=== PATIENT | male | born 1960 | race Caucasian/White ===

== ENCOUNTER 2018-09-14 14:06 | Inpatient (IN) | payer OTHER, SELFPAY ==
[2018-09-14 14:39] LABS: #Basophils 0.1 thou/uL (0.0-0.2); #Eosinphils 0.9 thou/uL (0.0-0.7); #Monocytes 0.8 thou/uL (0.11-0.59); #Neutrophils 5.6 thou/uL (1.40-6.50); %Basophils 0.7 % (0.0-1.0); %Eosinophils 10.5 % (0.0-10.0); %Lymphocytes 11.8 % (21.0-51.0); %Monocytes 9.3 % (0.0-10.0); %Neutrophils 67.7 % (42.0-75.0); Hemoglobin 16.5 g/dL (14.0-18.0); Mean Corpuscular HGB CONC 32.3 g/dL (32.0-36.0); Mean Corpuscular Hemoglobin 29.9 pg (27.0-31.0); Mean Corpuscular Volume 92.6 fL (78.0-98.0); Mean Platelet Volume 7.4 fL (7.4-10.4); Platelet Count 204 thou/uL (130-400); RBC Distribution Width 12.1 % (11.5-14.5); Red Blood Cell (RBC) Count 5.52 mill/uL (4.70-6.10); White Blood Cell (WBC) Count 8.3 thou/uL (4.8-10.8)
[2018-09-14 14:57] LABS: ALT (SGPT) 24 U/L (8-55); AST (SGOT) 19 U/L (5-34); Albumin 4.5 g/dL (3.5-5.0); Alkaline Phosphatase 67 U/L (40-150); Anion Gap 17 mmol/L (10-20); BUN (Urea Nitrogen) 9 mg/dL (8.4-25.7); Bilirubin, Total 0.5 mg/dL (0.2-1.2); Calc. Creatinine Clearance 0 mL/min (70-130); Calcium 9.7 mg/dL (7.8-10.44); Carbon Dioxide 21 mmol/L (22-29); Chloride 103 mmol/L (98-107); Estimated GFR-MDRD 83; Globulin 3.1 g/dL (2.4-3.5); Glucose 127 mg/dL (70-105); Potassium 3.9 mmol/L (3.5-5.1); Protein, Total 7.6 g/dL (6.0-8.3); Sodium 137 mmol/L (136-145)
[2018-09-14] MEDS ORDERED: methylPREDNISolone Sod Succ/PF 125 MG/2 ML VIAL ONE (15:28)
[2018-09-14] MEDS ORDERED: Magnesium 2 GM/50 ML BAG (IN WATER) ONE (17:32)
[2018-09-14] MEDS ORDERED: Azithromycin 500 MG VIAL ONE (17:48)
[2018-09-14] MEDS ORDERED: Ondansetron ODT 4 MG TAB SL PRN (19:23)
[2018-09-14] MEDS ORDERED: Ondansetron PF 4 MG/2 ML Vial IVP PRN ×2 (19:23→20:06)
[2018-09-14] MEDS ORDERED: Acetaminophen 325 MG TAB PO PRN ×2 (19:23→20:06)
[2018-09-14 19:49] VITALS: BMI 35.9
[2018-09-14] MEDS ORDERED: Senokot S 8.6-50 MG TAB PO PRN (20:06)
[2018-09-14] MEDS ORDERED: Ondansetron ODT 4 MG TAB PO PRN (20:06)
[2018-09-14] MEDS ORDERED: Acetaminophen 650 MG Suppository PR PRN (20:06)
--- NOTE | 2018-09-15 01:29 | HP ---
PRIMARY CARE PHYSICIAN: [facility]. CHIEF COMPLAINT: Wheezing and chest tightness. HISTORY OF PRESENT ILLNESS: This is a 57-year-old white male with no past medical history, who comes in with a 2-3 day history of worsening shortness of breath. He reports that about a month and half ago he was in [place] visiting relatives in [place] and felt a little short of breath there, thought maybe it was the elevation and improved when he got back to [place]. Then about 3 days prior to presentation, the patient developed a runny nose, congestion, sore throat and some wheezing and cough. He tried some NyQuil which helped with all the symptoms except for the wheezing and cough. He also tried some Primatene Mist, which does not help any. The sore throat went away the next day, but he developed increasing severe shortness of breath for the last two days, coughing, wheezing, unable to catch his breath. He went into the urgent care clinic today. There, he had a chest x-ray which was read as possible COPD versus normal, but no evidence of pneumonia. He was found to be hypoxic on room air. He was given nebulizers which helped a little bit, but when he got up to go and get his x-ray and walked down the [place], he got severely short of breath again and eventually had to be transported to the ER by ambulance. In the emergency room, the patient has had another DuoNeb. He also had Solu-Medrol 125. He had magnesium sulfate with again some improvement in his shortness of breath, but still very tight and very wheezy. His oxygen level came up now on 3 L of oxygen, he has 100%. However, when they tried taking him off the oxygen, his oxygen level dropped to the high 80s and he would be try potting again having a hard time catching his breath, so he is being admitted to the hospital. PAST MEDICAL HISTORY: The patient reports some allergies as a kid that he would always go away with Benadryl. He never had any asthma. PAST SURGICAL HISTORY: Left knee surgery and a hernia repair as a child. SOCIAL HISTORY: The patient smoked two packs per day from the time he was a teenager until he was in his mid 30s. He quit since then and has not had any more smoking exposure. He does tend to use an outdoor smoker a lot, however, most of the smoke stays in the machine or goes up the chimney and says he does not end up breathing a lot of it. No drug use. He drinks about 6 beers over the weekend socially. FAMILY HISTORY: Mother with diabetes and maternal grandfather with diabetes as well. No family history of COPD or asthma. ALLERGIES: NO KNOWN DRUG ALLERGIES. MEDICATIONS: 1. Flonase [id number]. 2. Attempted Primatene Mist earlier in the week without improvement. He is not using it now. REVIEW OF SYSTEMS: CONSTITUTIONAL: No fevers, no chills. EYES: No double vision or blurred vision. ENT: See HPI. CARDIOVASCULAR: No chest pain. No palpitations or racing heart. PULMONARY: See HPI. GASTROINTESTINAL: No abdominal pain. No nausea or vomiting. No diarrhea or constipation. GENITOURINARY: No dysuria or hematuria. MUSCULOSKELETAL: He has some chronic muscle aches and joint pains, but nothing unusual for him and nothing recent. SKIN: No rashes or other lesions noted. NEUROLOGIC: No numbness, tingling, or focal weakness. PHYSICAL EXAMINATION: VITAL SIGNS: Blood pressure 139/86, pulse 98, respirations have improved to 16 if he stays completely rest, while he was talking with me, it jumped up into the low to mid 20s, temperature 98, O2 saturation 100% on 3 L of oxygen. GENERAL: This is a well-developed obese white male, in mild respiratory distress. HEENT: Pupils equal, round, and reactive to light. Oropharynx clear without lesions, erythema, or exudate. NECK: Supple. No lymphadenopathy. No thyroid nodules or enlargement. No JVD. HEART: Regular rate and rhythm. No murmurs, rubs, or gallops. LUNGS: The patient has very tight breath sounds bilaterally. He has increased work of breathing. He has tachypnea if he tries to talk or move around, though not at rest and he has diffuse very loud wheezing throughout both lung hirsch. ABDOMEN: Soft, nontender to palpation. Normoactive bowel sounds. No hepatosplenomegaly or other masses. EXTREMITIES: No clubbing, cyanosis, or edema. SKIN: No rashes or other lesions noted. NEUROLOGIC: He has intact strength and sensation in all extremities and no facial droop. PSYCHIATRIC: Alert and oriented x3. Normal mood and affect. LABORATORY DATA: CBC within normal limits. Complete metabolic panel notable for carbon dioxide of 21 and a glucose of 127. His troponin is negative. His brain natriuretic peptide was negative. CHEST X-RAY: I did review the chest x-ray done at Urgent Care along with the radiologist's report. The lung hirsch are clear. There is some question of flattening of the diaphragms and was called to possible COPD by the radiologist. I did discuss this with one of the other radiologists and he was less convinced. No infiltrates. Normal heart size. No increased pulmonary vascular markings. No effusions or pulmonary edema. ASSESSMENT: 1. Acute asthma attack with hypoxia. We will continue DuoNeb as scheduled q.6 along with a p.r.n. q.4 nebs as well. We will continue Solu-Medrol 40 mg q.6 hours IV and we will give the patient azithromycin for 5 days, first dose has been given in the emergency room. We will consult Dr. Osborne, pulmonology, to assist with this case. 2. Gastrointestinal prophylaxis. We will put the patient on Protonix while he is on the steroids. 3. Deep venous thrombosis prophylaxis. We will put the patient on Lovenox while he is in the hospital and we will encourage ambulation. 4. Code status. I did discuss this extensively with the patient. He refuses any intubation, even if it becomes needed to save his life. I did service counselor him about the temporary need for this should he have a bad exacerbation of asthma and that it would just be for usually a few days until his breathing is under control, he is able to be taken off. He continued to strenuously refused to ever be intubated. He was okay with a BiPAP machine if he ever need that. He was okay with cardiac resuscitation, but he would again refuses any sort of intubation. Should he be incapacitated, he stated that his would be his medical decision maker, her name is oHda Roberts. Job ID: [id number]
[2018-09-15 06:23] LABS: #Lymphocytes 0.6 thou/uL (1.20-3.40); #Monocytes 0.2 thou/uL (0.11-0.59); #Neutrophils 6.8 thou/uL (1.40-6.50); %Basophils 0.1 % (0.0-1.0); %Eosinophils 0.3 % (0.0-10.0); %Lymphocytes 7.9 % (21.0-51.0); %Monocytes 2.4 % (0.0-10.0); %Neutrophils 89.3 % (42.0-75.0); Hemoglobin 15.8 g/dL (14.0-18.0); Mean Corpuscular HGB CONC 33.9 g/dL (32.0-36.0); Mean Corpuscular Hemoglobin 31.6 pg (27.0-31.0); Mean Corpuscular Volume 93.2 fL (78.0-98.0); Platelet Count 211 thou/uL (130-400); RBC Distribution Width 12.4 % (11.5-14.5); Red Blood Cell (RBC) Count 5.01 mill/uL (4.70-6.10); White Blood Cell (WBC) Count 7.7 thou/uL (4.8-10.8)
[2018-09-15 06:43] LABS: Anion Gap 15 mmol/L (10-20); BUN (Urea Nitrogen) 13 mg/dL (8.4-25.7); Calc. Creatinine Clearance 137 mL/min (70-130); Calcium 9.4 mg/dL (7.8-10.44); Carbon Dioxide 20 mmol/L (22-29); Chloride 104 mmol/L (98-107); Estimated GFR-MDRD 88; Glucose 137 mg/dL (70-105); Potassium 4.3 mmol/L (3.5-5.1); Sodium 135 mmol/L (136-145)
[2018-09-15] MEDS: Azithromycin 250 MG TAB PO SCH (07:46)
[2018-09-15] MEDS: Enoxaparin Sodium 40 MG/0.4 ML SYRINGE SC SCH (07:49)
--- NOTE | 2018-09-15 09:10 | PDOC.PN ---
- Subjective Encounter Start Date: 09/15/18 Encounter Start Time: 10:30 Subjective: Patient still very wheezy and tight. Coughing a lot and with sore -: rib cage. Mildly improved since yesterday. - Objective Resuscitation Status - Order Detail: 09/14/18 18:21 Resuscitation Status Routine Resuscitation Status: PRTL: Cardiac only Discussed with: Patient Additional comments: Patient refuses any intubation MAR Reviewed: Yes Vital Signs & Weight: Vital Signs (12 hours) Temp Pulse Resp BP Pulse Ox 09/15/18 08:03 98 24 H 96 09/15/18 08:00 98 09/15/18 07:36 97.9 F 98 22 H 129/82 93 L 09/15/18 05:06 107 H 22 H 94 L 09/15/18 04:00 97.5 F L 108 H 24 H 155/87 H 98 09/15/18 00:39 105 H 20 98 09/15/18 00:06 97.6 F 107 H 16 130/85 99 Weight Weight 236 lb 9.6 oz I&O: 09/14/18 09/15/18 09/16/18 06:59 06:59 06:59 Intake Total 300 Balance 300 Result Diagrams: 09/15/18 05:27 09/15/18 05:27 Phys Exam - Physical Examination Constitutional: NAD HEENT: moist MMs diffuse wheezing with very tight breath sounds Cardiovascular: RRR, no significant murmur Gastrointestinal: soft, non-tender Musculoskeletal: no edema Neurological: non-focal, moves all 4 limbs Psychiatric: normal affect, A&O x 3 Dx/Plan (1) Acute asthma Code(s): J45.909 - UNSPECIFIED ASTHMA, UNCOMPLICATED Status: Acute Comment: nebs, steroids, antibiotics. Never had before. Likely stimulated by viral URI. (2) Viral upper respiratory infection Code(s): J06.9 - ACUTE UPPER RESPIRATORY INFECTION, UNSPECIFIED Status: Acute Comment: unlikely flu as no fever - Plan cont current plan of care, continue antibiotics, respiratory therapy, DVT proph w/lovenox, DVT proph w/SCDs * . - Discharge Day Encounter end time: 10:40
--- NOTE | 2018-09-15 09:46 | CON ---
DATE OF CONSULTATION: HISTORY OF PRESENT ILLNESS: Blanco Roberts is a 57-year-old gentleman, who is 180 kg, presented to the ER with shortness of breath and cough, unresponsive almost about a month duration. He has had another trip to [place], shortly thereafter, developed some bronchitis, went to see an urgent care clinic, was given some medication. Over the last several days, his conditions were getting worse with more coughing, more wheezing, and more shortness of breath. He had smoked 2 packs a day for about 20 years, quit smoking about 20 years ago. He said he had frequent bouts of bronchitis and wheezing as a child, but no one ever told him he had asthma. No prior history of pneumonia. He says most days he can walk up to a mile without getting markedly short of breath. He does some kind of construction work. PAST MEDICAL HISTORY: Surprisingly unremarkable for any major medical problems. No history of diabetes or hypertension. PREVIOUS SURGERIES: Including left knee and hernia. CHRONIC MEDICATIONS: Apparently, none. ALLERGIES: NONE. FAMILY HISTORY: Unremarkable. REVIEW OF SYSTEMS: Otherwise, 10-point negative. PHYSICAL EXAMINATION: VITAL SIGNS: Saturations are 90% on 3 L, respirations 24, pulse 98, temperature 97, and blood pressure 128/82. CHEST: Reveals diffuse wheezing. CARDIAC: Normal S1 and S2. No gallops or masses. LABORATORY DATA: White count remarkable. His electrolytes are normal. IMAGING STUDIES: Chest x-ray shows no acute infiltrates. IMPRESSION: Chronic obstructive pulmonary disease exacerbation, bronchitis, former smoker, obesity, probably sleep apnea. PLAN: Continue steroids, empiric antibiotics, and neb treatment. We will follow. Consultation note, 70 minutes, 50% direct patient care. Job ID: [id number]
[2018-09-15] MEDS ORDERED: Magnesium 2 GM/50 ML 2 GM in Premix Bag 1 BAG IVPB SCH (10:00)
[2018-09-15] MEDS: Ketorolac Tromethamine 30 MG/ML VIAL IVP PRN ×2 (10:32→16:32)
[2018-09-15] MEDS: guaiFENesin/Codeine Phosphate 200 mg/20 mg 10 ml UD Cup PO PRN ×3 (10:34→22:24)
--- NOTE | 2018-09-15 13:12 | PQF ---
CLINICAL DOCUMENTATION IMPROVEMENT CLARIFICATION FORM: ICD-10 Updated PLEASE DO AN ADDENDUM TO THE PROGRESS NOTE WITH ANY DOCUMENTATION UPDATES OR ADDITIONS AND CARRY THROUGH TO DC SUMMARY. THANK YOU. DATE: 09/15/18 ATTN: DR. WILSON Please exercise your independent, professional judgment in responding to the clarification form. Clinical indicators are provided on the bottom of this form for your review Please check appropriate box(s) to clarify if the following diagnosis has been ruled in or ruled out: "COPD" [ X ] Ruled in diagnosis [ X ] Continue to treat [ ] Resolved [ ] Ruled out diagnosis [ ] Cannot rule out diagnosis [ ] Other diagnosis [ ] Unable to determine In addition, please specify: Present on Admission (POA): [ X ] Yes [ ] No [ ] Unable to determine For continuity of documentation, please document condition throughout progress notes and discharge summary. Thank You. CLINICAL INDICATORS - SIGNS / SYMPTOMS / LABS H&P: "ACUTE ASTHMA ATTACK WITH HYPOXIA" PROGRESS NOTE 09/15: "ACUTE ASTHMA" CONSULTATION 09/15 (PULMONARY): "CHRONIC OBSTRUCTIVE PULMONARY DISEASE EXACERBATION" RISKS: "LIKELY UPPER RESPIRATORY INFECTION" H/O SMOKING H/O FREQUENT BRONCHITIS AND WHEEZING A CHILD" TREATMENT: SUPPLEMENTAL OXYGEN DUONEBS (ER-PRESENT) IV AZITHROMYCIN (ER) PO ZITHROMAX (STARTED 09/15) METHYLPREDISOLONE INJECTION (ER-PRESENT) DULERA INHALER (ER) ROBITUSSIN AC (STARTED 09/15) (This form is maintained as a part of the permanent medical record) 2014 [employer]. All Rights Reserved NOELLE [email or web address] Office: [phone] [facility] HOSPITALSerene
[2018-09-15] MEDS: Mometasone/Formoterol 120 PUFF INHALER INH SCH (19:40)
[2018-09-16] MEDS: Mometasone/Formoterol 120 PUFF INHALER INH SCH ×2 (07:24→18:33)
[2018-09-16] MEDS: guaiFENesin/Codeine Phosphate 200 mg/20 mg 10 ml UD Cup PO PRN ×2 (07:50→16:00)
[2018-09-16] MEDS: Azithromycin 250 MG TAB PO SCH (07:51)
[2018-09-16] MEDS: Enoxaparin Sodium 40 MG/0.4 ML SYRINGE SC SCH (07:51)
--- NOTE | 2018-09-16 07:52 | PDOC.PN ---
- Subjective Encounter Start Date: 09/16/18 Encounter Start Time: 10:50 Subjective: Breathing much better, but still needs oxygen and still with significant -: wheezing. Coughing has improved. - Objective Resuscitation Status - Order Detail: 09/14/18 18:21 Resuscitation Status Routine Resuscitation Status: PRTL: Cardiac only Discussed with: Patient Additional comments: Patient refuses any intubation MAR Reviewed: Yes Vital Signs & Weight: Vital Signs (12 hours) Temp Pulse Resp BP Pulse Ox 09/16/18 07:24 89 20 90 L 09/16/18 07:15 90 L 09/16/18 07:13 89 20 90 L 09/16/18 07:03 97.8 F 97 22 H 138/81 96 09/16/18 04:00 20 136/76 93 L 09/16/18 00:09 75 18 98 09/15/18 20:25 94 L Weight Weight 236 lb 9.6 oz I&O: 09/15/18 09/16/18 09/17/18 06:59 06:59 06:59 Intake Total 300 Balance 300 Result Diagrams: 09/15/18 05:27 09/15/18 05:27 Phys Exam - Physical Examination Constitutional: NAD HEENT: moist MMs Respiratory: no rales, no rhonchi, wheezing present diffuse wheezing, but much better than on admit Cardiovascular: RRR, no significant murmur Gastrointestinal: soft Neurological: non-focal, moves all 4 limbs Psychiatric: normal affect, A&O x 3 Dx/Plan (1) Acute asthma Code(s): J45.909 - UNSPECIFIED ASTHMA, UNCOMPLICATED Status: Acute Comment: nebs, steroids, antibiotics. Never had before. Likely stimulated by viral URI. (2) COPD (chronic obstructive pulmonary disease) with acute bronchitis Code(s): J44.0 - CHRONIC OBSTRUCTIVE PULMON DISEASE W ACUTE LOWER RESP INFCT; J20.9 - ACUTE BRONCHITIS, UNSPECIFIED Status: Acute Comment: Determined to be COPD by Dr. Osborne (3) Viral upper respiratory infection Code(s): J06.9 - ACUTE UPPER RESPIRATORY INFECTION, UNSPECIFIED Status: Acute Comment: unlikely flu as no fever - Plan cont current plan of care, continue antibiotics, respiratory therapy, DVT proph w/lovenox, DVT proph w/SCDs Will likely need 2-3 more days in hospital. He is making some -: good improvement. * . - Discharge Day Encounter end time: 11:00
--- NOTE | 2018-09-16 09:01 | PRG ---
DATE OF SERVICE: 09/16/2018 SUBJECTIVE: This morning, he is better, but is still having difficulty breathing. Significant wheezing persist. OBJECTIVE: VITAL SIGNS: Temperature 98, pulse is 80, respiratory rate 20, sats 90% on 2L. CHEST: Diffuse wheezing. CARDIAC: Normal S1, S2. No gallops. ABDOMEN: No masses. IMPRESSION: 1. Chronic obstructive pulmonary disease exacerbation. 2. Asthma exacerbation. PLAN: Continue neb treatments, steroids, Dulera and followup. Job ID: [id number]
[2018-09-16] MEDS: Budesonide 0.5 MG/2 ML NEB INH SCH (18:32)
[2018-09-17] MEDS: Budesonide 0.5 MG/2 ML NEB INH SCH ×2 (07:35→18:06)
[2018-09-17] MEDS: Azithromycin 250 MG TAB PO SCH (07:44)
[2018-09-17] MEDS: Enoxaparin Sodium 40 MG/0.4 ML SYRINGE SC SCH (07:44)
[2018-09-17] MEDS: Mometasone/Formoterol 120 PUFF INHALER INH SCH ×2 (07:51→18:06)
[2018-09-17] MEDS: guaiFENesin/Codeine Phosphate 200 mg/20 mg 10 ml UD Cup PO PRN (12:18)
--- NOTE | 2018-09-17 20:56 | PDOC.PN ---
- Subjective Encounter Start Date: 09/17/18 Encounter Start Time: 10:30 Patient seen and examined for resp failure. Feels better. Dry cough +. No new complaints. No overnight events - Objective Resuscitation Status - Order Detail: 09/14/18 18:21 Resuscitation Status Routine Resuscitation Status: PRTL: Cardiac only Discussed with: Patient Additional comments: Patient refuses any intubation MAR Reviewed: Yes Vital Signs & Weight: Vital Signs (12 hours) Temp Pulse Resp BP Pulse Ox 09/17/18 20:00 97.8 F 88 20 150/75 H 92 L 09/17/18 18:05 73 16 93 L 09/17/18 13:42 70 12 92 L Weight Weight 236 lb 9.6 oz I&O: 09/16/18 09/17/18 09/18/18 06:59 06:59 06:59 Intake Total 1080 Balance 1080 Result Diagrams: 09/15/18 05:27 09/15/18 05:27 Phys Exam - Physical Examination Constitutional: NAD Respiratory: no rhonchi, wheezing present Cardiovascular: RRR, no rub Gastrointestinal: soft, non-tender, positive bowel sounds Musculoskeletal: no edema Neurological: moves all 4 limbs Dx/Plan (1) Acute hypoxemic respiratory failure Code(s): J96.01 - ACUTE RESPIRATORY FAILURE WITH HYPOXIA Status: Acute (2) Asthma with COPD with exacerbation Code(s): J44.1 - CHRONIC OBSTRUCTIVE PULMONARY DISEASE W (ACUTE) EXACERBATION; J45.901 - UNSPECIFIED ASTHMA WITH (ACUTE) EXACERBATION Status: Acute (3) Obesity (BMI 30-39.9) Code(s): E66.9 - OBESITY, UNSPECIFIED Status: Chronic (4) CKD (chronic kidney disease) stage 2, GFR 60-89 ml/min Code(s): N18.2 - CHRONIC KIDNEY DISEASE, STAGE 2 (MILD) Status: Chronic - Plan cont current plan of care, continue antibiotics, DVT proph w/SCDs Cont O2/Nebs/Steroids and Atbx -: Wean O2 -: DC in 1-2 days if stable -: Cont current meds as below Review of Systems - Review of Systems Cardiovascular: negative: chest pain, palpitations, orthopnea, paroxysmal nocturnal dyspnea, edema, light headedness, other Gastrointestinal: negative: Nausea, Vomiting, Abdominal Pain, Diarrhea, Constipation, Melena, Hematochezia, Other Genitourinary: negative: Dysuria, Frequency, Incontinence, Hematuria, Retention , Other - Medications/Allergies Allergies/Adverse Reactions: Allergies Allergy/AdvReac Type Severity Reaction Status Date / Time No Known Drug Allergies Allergy Verified 09/14/18 19:44 Medications: Current Medications Acetaminophen (Tylenol) 650 mg PO Q4H PRN PRN Reason: Headache/Fever/Mild Pain (1-3) Last Admin: 09/15/18 01:05 Dose: 650 mg Acetaminophen (Tylenol) 650 mg NM Q4H PRN PRN Reason: Headache/Fever/Mild Pain (1-3) Albuterol/Ipratropium (Duoneb) 3 ml NEB [id number] KIMBERLY Last Admin: 09/17/18 18:05 Dose: 3 ml Albuterol/Ipratropium (Duoneb) 3 ml NEB Q4H PRN PRN Reason: SOB &/or Wheezing Last Admin: 09/15/18 05:06 Dose: 3 ml Azithromycin (Zithromax) 500 mg PO DAILY KIMBERLY Stop: 09/18/18 09:01 Last Admin: 09/17/18 07:44 Dose: 500 mg Budesonide (Pulmicort Neb Solution) 0.5 mg INH BID-RT KIMBERLY Last Admin: 09/17/18 18:06 Dose: 0.5 mg Enoxaparin Sodium (Lovenox) 40 mg SC 0900 COUNTS INCLUDE 234 BEDS AT THE [facility] Last Admin: 09/17/18 07:44 Dose: 40 mg Guaifenesin/Codeine Phosphate (Robitussin Ac) 10 ml PO Q6H PRN PRN Reason: Cough Last Admin: 09/17/18 12:18 Dose: 10 ml Ketorolac Tromethamine (Toradol) 15 mg IVP Q6H PRN PRN Reason: Pain Stop: 09/20/18 10:13 Last Admin: 09/15/18 16:32 Dose: 15 mg Methylprednisolone Sodium Succinate (Solu-Medrol) 40 mg IVP Q6HR KIMBERLY Last Admin: 09/17/18 17:15 Dose: 40 mg Mometasone Furoate/Formoterol Fumar (Dulera 200 Mcg/5 Mcg Inhaler) 2 puff INH BID-RT KIMBERLY Last Admin: 09/17/18 18:06 Dose: 2 puff Ondansetron HCl (Zofran Odt) 4 mg PO Q6H PRN PRN Reason: Nausea/Vomiting Ondansetron HCl (Zofran) 4 mg IVP Q6H PRN PRN Reason: Nausea/Vomiting Pantoprazole Sodium (Protonix) 40 mg PO DAILY COUNTS INCLUDE 234 BEDS AT THE [facility] Last Admin: 09/17/18 07:44 Dose: 40 mg Senna/Docusate Sodium (Senokot S) 2 tab PO BID PRN PRN Reason: Constipation Sodium Chloride (Flush - Normal Saline) 10 ml IVF Q12HR COUNTS INCLUDE 234 BEDS AT THE [facility] Last Admin: 09/17/18 20:06 Dose: 10 ml Sodium Chloride (Flush - Normal Saline) 10 ml IVF PRN PRN PRN Reason: Saline Flush
--- NOTE | 2018-09-17 21:26 | PRG ---
DATE OF SERVICE: 09/17/2018 SUBJECTIVE: Mr. Roberts has no new complaints. OBJECTIVE: VITAL SIGNS: He is afebrile, heart rate is in 80s, respiratory rate is 20, oximetry is 92 on room air, and blood pressure is 150/75. LUNGS: Still remarkable for faint wheezes. HEART: Regular rhythm. ABDOMEN: Soft. LABORATORY STUDIES: He has no new lab. IMPRESSION: Asthma exacerbation. PLAN: He tells me he has been wheezing since he was very little. He only smoked for about 10 years. Hopefully, okay to improve to a point, where he can go home in the morning. He probably needs a nebulizer at the house. He will need a slow steroid taper. He will need close outpatient followup. At some point in time, he probably needs a sleep study. He will need PFTs as an outpatient as well. He actually might be someone that does well with Singulair. His steroid dosing can be decreased. Job ID: [id number]
[2018-09-18] MEDS: Budesonide 0.5 MG/2 ML NEB INH SCH (07:25)
[2018-09-18] MEDS: Mometasone/Formoterol 120 PUFF INHALER INH SCH (07:35)
[2018-09-18] MEDS: Azithromycin 250 MG TAB PO SCH (08:02)
[2018-09-18] MEDS: Enoxaparin Sodium 40 MG/0.4 ML SYRINGE SC SCH (08:03)
[2018-09-18 08:08] VITALS: BP 132/75; TEMP 98
--- NOTE | 2018-09-18 16:07 | DIS ---
DATE OF ADMISSION: 09/14/2018 DATE OF DISCHARGE: 09/18/2018 DISCHARGE DISPOSITION: Home. FOLLOWUP: 1. Follow up with primary care physician at [facility] in 1 week. 2. Follow up with Pulmonary, Dr. Russ in 1 week. ALLERGIES: NO KNOWN DRUG ALLERGIES. DISCHARGE MEDICATIONS: 1. Prednisone taper. 2. Protonix daily for 14 days. 3. Singulair 10 mg daily. 4. Dulera 200/5 two puffs b.i.d. 5. DuoNebs as needed. 6. ProAir as needed. Please note, the patient completed azithromycin during this hospital stay. The patient was seen and examined on the day of discharge. Denies any new complaints. No chest pain, shortness of breath reported. BRIEF HOSPITAL COURSE: The patient is a 57-year-old male, who presented to the emergency room on September 14, 2017, with shortness of breath. His O2 saturation was 89% on room air. Please refer to the history and physical for further details. The patient was admitted to the hospital with a diagnosis of asthma/COPD exacerbation. He was started on steroids, antibiotics, nebulizer treatment, and oxygen with good improvement in his symptoms. On the day of discharge, he is on room air. Steroids have been changed to oral. He has completed azithromycin. Singulair was added yesterday. He appears stable for discharge. FINAL DIAGNOSES: 1. Acute hypoxic respiratory failure secondary to asthma/chronic obstructive pulmonary disease exacerbation. 2. Obesity with a BMI 36. 3. Probable moderate persistent asthma. 4. Chronic kidney disease, stage 2. 5. Mild hyponatremia. 6. Degenerative joint disease. Plan of care was discussed with the patient in detail. He stated understanding. Job ID: [id number]
--- NOTE | 2018-09-18 19:16 | PRG ---
DATE OF SERVICE: 09/18/2018 SUBJECTIVE: Blanco Roberts did well overnight. He had no complaints. He says he feels like he is not wheezing for the first time in a long time. OBJECTIVE: On exam, he has minimal wheezes, which is surprising since he says he has been wheezing since the childhood. He is stable to go home. He will go with a 2-week steroid taper. He will see me in a couple of weeks. We will add a Singulair. He has a nebulizer prescription. He will use ipratropium and albuterol 3 times a day. I will see him in followup in 2 to 3 weeks. Job ID: [id number]
[2018-09-18] MEDS ORDERED: Montelukast Sodium 10 mg Tablet PO SCH (21:00)
== END 2018-09-18 14:21 | disposition home or self-care (01) | DRG 189 ==
LOC: ERS 14:06 → T4-B 17:51
PROVIDERS: ADMIT Emergency Medicine; ATTEND Emergency Medicine
DX: J96.01 Acute respiratory failure with hypoxia (principal); J44.1 Chronic obstructive pulmonary disease with (acute) exacerbation; J45.41 Moderate persistent asthma with (acute) exacerbation; E87.1 Hypo-osmolality and hyponatremia; E66.9 Obesity, unspecified; Z68.36 Body mass index [BMI] 36.0-36.9, adult; N18.2 Chronic kidney disease, stage 2 (mild); M19.90 Unspecified osteoarthritis, unspecified site; Z87.891 Personal history of nicotine dependence
CPT/HCPCS: 36415; 80048; 80053; 83880; 84484; 85025; 93005; 94640; 96365; 96368; 96375; J0456; J1650; J1885; J2920; J2930; J7620; J7626

== ENCOUNTER 2018-10-25 08:52 | Outpatient (CLI) | payer OTHER ==
--- NOTE | 2018-10-25 09:33 | RAD ---
CHEST 2 VIEWS: Date; 10/25/18 HISTORY: Shortness of breath. COMPARISON: Radiograph dated 09/14/18. FINDINGS: Lungs are clear. No pneumothorax or effusion. Cardiac silhouette and mediastinal contours within norm al limits. IMPRESSION: No acute intrathoracic abnormality. POS: [facility]
== END 2018-10-25 08:53 | disposition home or self-care (01) ==
LOC: RAD 08:52
PROVIDERS: ATTEND Internal Medicine Critical Care Medicine
DX: R06.00 Dyspnea, unspecified (principal)
CPT/HCPCS: 71046

== ENCOUNTER 2022-10-05 02:00 | Inpatient (IN) | payer OTHER ==
[2022-10-05] MEDS ORDERED: LORazepam 2 MG/ML SYR.(CARPUJECT) ONE (02:14)
[2022-10-05 02:56] LABS: Amphetamine Not Detected (NotDetected); Barbiturates Screen Not Detected (NotDetected); Benzodiazepine Screen Not Detected (NotDetected); Cocaine Metabolite Screen Not Detected (NotDetected); Methadone Not Detected (NotDetected); Methamphetamine Not Detected (NotDetected); Opiate Screen Not Detected (NotDetected); Oxycodone Screen Not Detected (NotDetected); Phencyclidine (PCP) Not Detected (NotDetected); THC/Cannabinoid Screen Detected (NotDetected); Tricyclic Screen Not Detected (NotDetected)
[2022-10-05 02:59] LABS: #Eosinphils 0.1 thou/uL (0.0-0.7); #Lymphocytes 1.9 thou/uL (1.20-3.40); #Neutrophils 8.1 thou/uL (1.40-6.50); %Basophils 0.4 % (0.0-1.0); %Eosinophils 0.9 % (0.0-10.0); %Lymphocytes 17.2 % (21.0-51.0); %Monocytes 8.6 % (0.0-10.0); %Neutrophils 72.9 % (42.0-75.0); Hemoglobin 15.4 g/dL (14.0-18.0); Mean Corpuscular HGB CONC 34.2 g/dL (32.0-36.0); Mean Corpuscular Hemoglobin 32.5 pg (27.0-31.0); Mean Corpuscular Volume 95.1 fl (78.0-98.0); Mean Platelet Volume 7.7 fL (7.4-10.4); Platelet Count 276 10x3/uL (130-400); RBC Distribution Width 12.5 % (11.5-14.5); Red Blood Cell (RBC) Count 4.74 mill/uL (4.70-6.10); White Blood Cell (WBC) Count 11.1 10x3/uL (4.8-10.8)
[2022-10-05 03:04] LABS: Bacteria/HPF None Seen HPF (None Seen); Bilirubin Negative (Negative); Blood, Urine Trace (Negative); Clarity Clear (Clear); Glucose, Urine (Dipstick) 30 mg/dL (Negative); Ketone, Urine Trace mg/dL (Negative); Leukocyte Negative Leu/uL (Negative); Nitrite Negative (Negative); Protein, Urine (Dipstick) 20 mg/dL (Neg-Trace); RBC/HPF None Seen HPF (0-3); Specific Gravity, Urine 1.009 (1.002-1.036); Squamous Epithelial None Seen HPF (0-3); Urobilinogen Normal mg/dL (Less than 2); WBC/HPF 0-3 HPF (0-3)
[2022-10-05 03:15] LABS: ALT (SGPT) 23 U/L (8-55); AST (SGOT) 21 U/L (5-34); Acetaminophen Less than 10.0 mcg/mL (10.0-30.0); Alcohol Less than 10 mg/dL (Less than 10); Alkaline Phosphatase 51 U/L (40-110); Anion Gap 20 mmol/L (10-20); BUN (Urea Nitrogen) 12 mg/dL (8.4-25.7); Bilirubin, Total 0.6 mg/dL (0.2-1.2); Calc. Creatinine Clearance 0 mL/min (70-130); Calcium 8.8 mg/dL (7.8-10.44); Carbon Dioxide 20 mmol/L (23-31); Chloride 97 mmol/L (98-107); Estimated GFR 80; Globulin 2.9 g/dL (2.4-3.5); Glucose 294 mg/dL (80-115); Lipase 171 U/L (8-78); Potassium 3.6 mmol/L (3.5-5.1); Protein, Total 6.9 g/dL (5.8-8.1); Salicylate Less than 8.0 mg/dL (15.0-30.0); Sodium 133 mmol/L (136-145)
[2022-10-05] MEDS ORDERED: Diazepam 5 MG TAB ONE (03:29)
[2022-10-05] MEDS ORDERED: Lorazepam 1 MG TAB PO PRN (04:53)
[2022-10-05] MEDS ORDERED: Ondansetron ODT 4 MG TAB PO PRN (04:53)
[2022-10-05] MEDS ORDERED: Lorazepam 2 MG/ML VIAL IM PRN (04:53)
[2022-10-05] MEDS ORDERED: Dextrose 50% Abboject 50 ML SYRINGE SLOW IVP PRN (04:57)
[2022-10-05] MEDS ORDERED: Dextrose 5% in Water 1,000 ML IV PRN (04:57)
[2022-10-05] MEDS ORDERED: HumaLOG 300 UNITS/3 ML VIAL SC PRN ×2 (04:57)
[2022-10-05] MEDS ORDERED: Lactated Ringer's 1,000 ML IV SCH (05:00)
[2022-10-05] MEDS ORDERED: Electrolyte Replacement Protocol 1 EACH FS SCH (05:00)
[2022-10-05] MEDS: Thiamine HCl 200 MG/2 ML VIAL SLOW IVP SCH (06:10)
[2022-10-05 06:15] LABS: Lactic Acid 1.1 mmol/L (0.5-2.2)
[2022-10-05 06:20] LABS: Alcohol Less than 10 mg/dL (Less than 10); Magnesium 2.1 mg/dL (1.6-2.6)
[2022-10-05 06:26] LABS: Phosphorus 1.4 mg/dL (2.3-4.7)
[2022-10-05] MEDS: Sodium Chloride 0.9% 1,000 ML IV SCH ×4 (06:30→21:08)
[2022-10-05] MEDS: chlordiazePOXIDE HCl 25 MG CAP PO SCH ×4 (07:18→21:56)
[2022-10-05] MEDS: Mometasone/Formoterol 200/5 60 PUFF INH SCH ×2 (07:20→19:50)
[2022-10-05] MEDS ORDERED: PHOS-NAK 1 PKT PACK PO SCH (08:00)
[2022-10-05] MEDS ORDERED: Potassium Phosphate 9 MMOL in Sodium Chloride 0.9% 100 ML IVPB SCH (08:00)
[2022-10-05] MEDS ORDERED: Folic Acid 1 MG TAB ONE (08:34)
[2022-10-05] MEDS: Multivit, Therapeutic 1 TAB PO SCH (08:45)
[2022-10-05] MEDS: Folic Acid 1 MG TAB PO SCH (08:45)
[2022-10-05] MEDS: Montelukast Sodium 10 mg Tablet PO SCH (08:45)
[2022-10-05 09:01] LABS: SARS-CoV-2 NAA Rapid Test Not Detected (NotDetected)
[2022-10-05] MEDS ORDERED: POTASSIUM PHOSPHATE IVPB SCH (12:00)
[2022-10-05] MEDS ORDERED: SODIUM CHLORIDE 0.9% IVPB SCH (12:00)
[2022-10-05] MEDS ORDERED: Magnevist 469MG/ML 20 ML VIAL ONE (12:00)
[2022-10-05 13:37] VITALS: BMI 30.1
[2022-10-06] MEDS: Sodium Chloride 0.9% 1,000 ML IV SCH ×2 (02:13→09:02)
[2022-10-06 03:26] VITALS: TEMP 98
[2022-10-06] MEDS ORDERED: Lorazepam 1 MG TAB PO PRN (04:54)
[2022-10-06 05:51] LABS: #Basophils 0.1 thou/uL (0.0-0.2); #Eosinphils 0.1 thou/uL (0.0-0.7); #Lymphocytes 4.9 thou/uL (1.20-3.40); #Monocytes 0.6 thou/uL (0.11-0.59); #Neutrophils 5.4 thou/uL (1.40-6.50); %Basophils 0.5 % (0.0-1.0); %Eosinophils 0.7 % (0.0-10.0); %Lymphocytes 44.8 % (21.0-51.0); %Monocytes 5.2 % (0.0-10.0); %Neutrophils 48.9 % (42.0-75.0); Hemoglobin 13.1 g/dL (14.0-18.0); Mean Corpuscular HGB CONC 30.2 g/dL (32.0-36.0); Mean Corpuscular Hemoglobin 30.7 pg (27.0-31.0); Mean Platelet Volume 8.2 fL (7.4-10.4); Platelet Count 159 10x3/uL (130-400); RBC Distribution Width 13.1 % (11.5-14.5); Red Blood Cell (RBC) Count 4.28 mill/uL (4.70-6.10)
[2022-10-06 05:52] LABS: Band 5 % (5-11); Eosinophils 2 % (0-10); Lymphocytes 28 % (21-51); MDiff Complete? YES; Monocytes 2 % (0-10); Neutrophil 63 % (42-75); Platelet Morphology Comment Appears Adequate; RBC Morphology Normal
[2022-10-06] MEDS: Thiamine HCl 200 MG/2 ML VIAL SLOW IVP SCH (05:59)
[2022-10-06] MEDS: chlordiazePOXIDE HCl 25 MG CAP PO SCH (06:00)
[2022-10-06 07:52] LABS: ALT (SGPT) 21 U/L (8-55); AST (SGOT) 28 U/L (5-34); Albumin 3.2 g/dL (3.4-4.8); Alkaline Phosphatase 40 U/L (40-110); Anion Gap 11 mmol/L (10-20); BUN (Urea Nitrogen) 6 mg/dL (8.4-25.7); Bilirubin, Total 0.6 mg/dL (0.2-1.2); Calc. Creatinine Clearance 133 mL/min (70-130); Carbon Dioxide 21 mmol/L (23-31); Chloride 105 mmol/L (98-107); Estimated GFR 103; Globulin 2.3 g/dL (2.4-3.5); Glucose 85 mg/dL (80-115); Potassium 3.2 mmol/L (3.5-5.1); Protein, Total 5.5 g/dL (5.8-8.1); Sodium 134 mmol/L (136-145)
[2022-10-06 08:45] VITALS: BP 144/82
[2022-10-06] MEDS: Mometasone/Formoterol 200/5 60 PUFF INH SCH (08:49)
[2022-10-06 09:00] LABS: Magnesium 1.7 mg/dL (1.6-2.6); Phosphorus 2.5 mg/dL (2.3-4.7)
[2022-10-06] MEDS: Montelukast Sodium 10 mg Tablet PO SCH (09:03)
[2022-10-06] MEDS: Folic Acid 1 MG TAB PO SCH (09:04)
[2022-10-06] MEDS: Multivit, Therapeutic 1 TAB PO SCH (09:04)
[2022-10-06] MEDS ORDERED: Potassium Chloride 20 MEQ TAB PO SCH (09:15)
[2022-10-07] MEDS ORDERED: Lorazepam 1 MG TAB PO PRN (04:54)
[2022-10-08] MEDS ORDERED: Lorazepam 0.5 MG TAB PO PRN (04:54)
[2022-10-08] MEDS ORDERED: Thiamine 100 MG TAB PO SCH (09:00)
== END 2022-10-06 11:45 | disposition home or self-care (01) | DRG 101 ==
LOC: ERS 02:00 → ERHOLD 03:57 → NEURO 15:22
PROVIDERS: ADMIT Family Medicine; ATTEND Family Medicine
DX: G40.509 Epileptic seizures related to external causes, not intractable, without status epilepticus (principal); F10.239 Alcohol dependence with withdrawal, unspecified; J44.1 Chronic obstructive pulmonary disease with (acute) exacerbation; J45.901 Unspecified asthma with (acute) exacerbation; N18.2 Chronic kidney disease, stage 2 (mild); E66.9 Obesity, unspecified; R73.9 Hyperglycemia, unspecified; E83.39 Other disorders of phosphorus metabolism; E83.42 Hypomagnesemia; Z79.899 Other long term (current) drug therapy; Z68.30 Body mass index [BMI] 30.0-30.9, adult
CPT/HCPCS: 36415; 36416; 51701; 70450; 70553; 71045; 80053; 80306; 80307; 81003; 81015; 83036; 83605; 83690; 83735; 83880; 84100; 84146; 84443; 84484; 85025; 93005; 95816; 95819; 95957; 96361; 96374; A9579; J1650; J2060; J3411; J3490; J7050; U0002

== ENCOUNTER 2022-12-20 12:54 | Observation (INO) | payer OTHER ==
[2022-12-20 13:23] LABS: #Monocytes 0.7 thou/uL (0.11-0.59); #Neutrophils 14.7 thou/uL (1.40-6.50); %Eosinophils 0.2 % (0.0-10.0); %Lymphocytes 5.8 % (21.0-51.0); %Monocytes 4.3 % (0.0-10.0); %Neutrophils 89.7 % (42.0-75.0); Hemoglobin 15.5 g/dL (14.0-18.0); Mean Corpuscular Hemoglobin 31.4 pg (27.0-31.0); Mean Corpuscular Volume 92.1 fl (78.0-98.0); Mean Platelet Volume 7.3 fL (7.4-10.4); Platelet Count 261 10x3/uL (130-400); RBC Distribution Width 12.4 % (11.5-14.5); Red Blood Cell (RBC) Count 4.93 mill/uL (4.70-6.10); White Blood Cell (WBC) Count 16.4 10x3/uL (4.8-10.8)
[2022-12-20] MEDS ORDERED: Thiamine HCl 100 MG, Folic Acid 1 MG in Dextrose 5 %-0.45 % NaCl 1,000 ML IVPB SCH (13:30)
[2022-12-20 14:20] LABS: ALT (SGPT) 20 U/L (8-55); AST (SGOT) 17 U/L (5-34); Albumin 4.5 g/dL (3.4-4.8); Alkaline Phosphatase 54 U/L (40-110); Anion Gap 19 mmol/L (10-20); BUN (Urea Nitrogen) 15 mg/dL (8.4-25.7); Bilirubin, Total 0.6 mg/dL (0.2-1.2); Calc. Creatinine Clearance 0 mL/min (70-130); Calcium 9.8 mg/dL (7.8-10.44); Carbon Dioxide 17 mmol/L (23-31); Chloride 104 mmol/L (98-107); Estimated GFR 91; Globulin 2.9 g/dL (2.4-3.5); Glucose 226 mg/dL (80-115); Magnesium 1.7 mg/dL (1.6-2.6); Potassium 3.8 mmol/L (3.5-5.1); Protein, Total 7.4 g/dL (5.8-8.1); Sodium 136 mmol/L (136-145)
[2022-12-20] MEDS ORDERED: Acetaminophen 325 MG TAB PO PRN (15:57)
[2022-12-20] MEDS ORDERED: Lorazepam 2 MG/ML VIAL IM PRN (16:14)
[2022-12-20] MEDS ORDERED: Lorazepam 1 MG TAB PO PRN (16:14)
[2022-12-20] MEDS ORDERED: Ondansetron ODT 4 MG TAB PO PRN (16:14)
[2022-12-20] MEDS ORDERED: Electrolyte Replacement Protocol 1 EACH FS SCH (16:15)
[2022-12-20] MEDS ORDERED: Electrolyte Replacement Protocol FS PRN (16:30)
[2022-12-20] MEDS ORDERED: cefTRIAXone\\ROCEPHIN 1 GM in Sodium Chloride 0.9% 100 ML IVPB SCH (16:30)
[2022-12-20] MEDS ORDERED: Multivit, Therapeutic 1 TAB PO SCH (16:30)
[2022-12-20 16:48] LABS: Lactic Acid 1.2 mmol/L (0.5-2.2)
[2022-12-20 16:53] LABS: Alcohol Less than 10 mg/dL (Less than 10); Lipase 32 U/L (8-78); Magnesium 1.9 mg/dL (1.6-2.6)
[2022-12-20] MEDS ORDERED: Azithromycin 500 MG in Sodium Chloride 0.9% 250 ML 250 ML IVPB SCH (17:00)
[2022-12-20 17:24] LABS: Phosphorus 2.1 mg/dL (2.3-4.7)
[2022-12-20] MEDS ORDERED: hydrALAZINE 20 MG/ML VIAL SLOW IVP PRN (18:10)
[2022-12-20 19:04] LABS: Bilirubin Negative (Negative); Blood, Urine Negative (Negative); Clarity Turbid (Clear); Glucose, Urine (Dipstick) 100 mg/dL (Negative); Ketone, Urine 20 mg/dL (Negative); Leukocyte Negative Leu/uL (Negative); Nitrite Negative (Negative); Protein, Urine (Dipstick) 20 mg/dL (Neg-Trace); Specific Gravity, Urine 1.021 (1.002-1.036); Urobilinogen Normal mg/dL (Less than 2)
[2022-12-20 19:12] LABS: Amphetamine Not Detected (NotDetected); Barbiturates Screen Not Detected (NotDetected); Benzodiazepine Screen Detected (NotDetected); Cocaine Metabolite Screen Not Detected (NotDetected); Methadone Not Detected (NotDetected); Methamphetamine Not Detected (NotDetected); Opiate Screen Not Detected (NotDetected); Oxycodone Screen Not Detected (NotDetected); Phencyclidine (PCP) Not Detected (NotDetected); THC/Cannabinoid Screen Detected (NotDetected); Tricyclic Screen Not Detected (NotDetected)
[2022-12-20] MEDS: Famotidine 20 MG TAB PO SCH (20:17)
[2022-12-20] MEDS ORDERED: Magnesium 2 GM/50 ML(in water) 2 GM in Premix Bag 1 BAG IVPB SCH (22:00)
[2022-12-20 22:39] VITALS: BMI 29.7
[2022-12-21] MEDS: Lorazepam 1 MG TAB PO SCH ×3 (04:15→12:34)
[2022-12-21 05:02] LABS: #Eosinphils 0.1 thou/uL (0.0-0.7); #Lymphocytes 1.3 thou/uL (1.20-3.40); #Monocytes 1.1 thou/uL (0.11-0.59); #Neutrophils 9.5 thou/uL (1.40-6.50); %Eosinophils 0.4 % (0.0-10.0); %Monocytes 9.1 % (0.0-10.0); %Neutrophils 79.4 % (42.0-75.0); Mean Corpuscular HGB CONC 32.4 g/dL (32.0-36.0); Mean Corpuscular Hemoglobin 30.1 pg (27.0-31.0); Mean Platelet Volume 7.3 fL (7.4-10.4); Platelet Count 196 10x3/uL (130-400); RBC Distribution Width 12.3 % (11.5-14.5); Red Blood Cell (RBC) Count 4.33 mill/uL (4.70-6.10)
[2022-12-21 05:24] LABS: ALT (SGPT) 17 U/L (8-55); AST (SGOT) 20 U/L (5-34); Albumin 3.7 g/dL (3.4-4.8); Alkaline Phosphatase 44 U/L (40-110); Anion Gap 11 mmol/L (10-20); BUN (Urea Nitrogen) 12 mg/dL (8.4-25.7); Bilirubin, Total 0.5 mg/dL (0.2-1.2); Calc. Creatinine Clearance 121 mL/min (70-130); Calcium 8.6 mg/dL (7.8-10.44); Carbon Dioxide 25 mmol/L (23-31); Chloride 104 mmol/L (98-107); Estimated GFR 97; Globulin 2.4 g/dL (2.4-3.5); Glucose 104 mg/dL (80-115); Potassium 3.3 mmol/L (3.5-5.1); Protein, Total 6.1 g/dL (5.8-8.1); Sodium 137 mmol/L (136-145)
[2022-12-21] MEDS ORDERED: Potassium Chloride 20 MEQ TAB PO SCH (08:00)
[2022-12-21] MEDS ORDERED: Thiamine HCl 200 MG/2 ML VIAL SLOW IVP SCH (09:00)
[2022-12-21] MEDS ORDERED: Folic Acid 1 MG TAB PO SCH (09:00)
[2022-12-21] MEDS ORDERED: Multivit, Therapeutic 1 TAB PO SCH (09:00)
[2022-12-21] MEDS: Famotidine 20 MG TAB PO SCH (10:36)
[2022-12-21 11:44] VITALS: BP 145/83; TEMP 97.7
[2022-12-21] MEDS ORDERED: Lorazepam 1 MG TAB PO PRN (16:14)
[2022-12-22] MEDS ORDERED: Lorazepam 1 MG TAB PO PRN (16:14)
[2022-12-22] MEDS ORDERED: Lorazepam 0.5 MG TAB PO SCH (18:00)
[2022-12-23] MEDS ORDERED: Thiamine 100 MG TAB PO SCH (09:00)
[2022-12-23] MEDS ORDERED: Lorazepam 0.5 MG TAB PO PRN (16:14)
== END 2022-12-21 14:42 | disposition home or self-care (01) ==
LOC: SUATTDRO 12:54 → ERS 12:54 → ERHOLD 15:34 → 2SW 18:48
PROVIDERS: ADMIT Internal Medicine; ATTEND Internal Medicine
DX: R56.9 Unspecified convulsions (principal); J18.9 Pneumonia, unspecified organism; J96.01 Acute respiratory failure with hypoxia; E87.6 Hypokalemia; E83.39 Other disorders of phosphorus metabolism; F10.20 Alcohol dependence, uncomplicated; E87.20 Acidosis, unspecified; J45.909 Unspecified asthma, uncomplicated; R73.9 Hyperglycemia, unspecified; Z79.899 Other long term (current) drug therapy; Y90.0 Blood alcohol level of less than 20 mg/100 ml
CPT/HCPCS: 36415; 36416; 71045; 80053; 80306; 80307; 81003; 83605; 83690; 83735; 83880; 84100; 84146; 84484; 85025; 87040; 93005; 95816; 95819; 95957; 96365; 96366; 96368; 96375; G0378; J1650; J3411; J3475; J7042

== ENCOUNTER 2023-04-20 03:36 | Observation (INO) | payer OTHER ==
[2023-04-20] MEDS ORDERED: levETIRAcetam 500 MG/5 ML VIAL ONE (03:54)
[2023-04-20] MEDS ORDERED: LORazepam 2 MG/ML SYR.(CARPUJECT) ONE (03:59)
[2023-04-20 04:02] LABS: #Basophils 0.1 thou/uL (0.0-0.2); #Eosinphils 0.5 thou/uL (0.0-0.7); #Monocytes 0.8 thou/uL (0.11-0.59); #Neutrophils 5.5 thou/uL (1.40-6.50); %Basophils 0.9 % (0.0-1.0); %Eosinophils 5.2 % (0.0-10.0); %Lymphocytes 19.7 % (21.0-51.0); %Monocytes 9.1 % (0.0-10.0); %Neutrophils 64.1 % (42.0-75.0); Hematocrit 43.4 % (42.0-52.0); Hemoglobin 14.5 g/dL (14.0-18.0); Mean Corpuscular HGB CONC 33.4 g/dL (32.0-36.0); Mean Corpuscular Hemoglobin 29.5 pg (27.0-31.0); Mean Corpuscular Volume 88.4 fl (78.0-98.0); Mean Platelet Volume 9.7 fL (7.4-10.4); Platelet Count 252 10x3/uL (130-400); RBC Distribution Width 13.8 % (11.5-14.5); Red Blood Cell (RBC) Count 4.91 mill/uL (4.70-6.10); White Blood Cell (WBC) Count 8.6 10x3/uL (4.8-10.8)
[2023-04-20] MEDS ORDERED: Ondansetron PF 4 MG/2 ML Vial ONE (04:05)
[2023-04-20] MEDS ORDERED: Thiamine 100 MG TAB ONE (04:12)
[2023-04-20 04:27] LABS: ALT (SGPT) 24 U/L (8-55); AST (SGOT) 17 U/L (5-34); Albumin 4.1 g/dL (3.4-4.8); Alcohol Less than 10.0 mg/dL (Less than 10); Alkaline Phosphatase 65 U/L (40-110); Anion Gap 16 mmol/L (10-20); BUN (Urea Nitrogen) 13 mg/dL (8.4-25.7); Bilirubin, Total 0.2 mg/dL (0.2-1.2); Calc. Creatinine Clearance 0 mL/min (70-130); Calcium 9.1 mg/dL (7.8-10.44); Carbon Dioxide 16 mmol/L (23-31); Chloride 105 mmol/L (98-107); Estimated GFR 90; Globulin 2.7 g/dL (2.4-3.5); Glucose 190 mg/dL (80-115); Magnesium 1.9 mg/dL (1.6-2.6); Potassium 3.9 mmol/L (3.5-5.1); Protein, Total 6.8 g/dL (5.8-8.1); Sodium 133 mmol/L (136-145)
[2023-04-20] MEDS ORDERED: Thiamine HCl 200 MG/2 ML VIAL SLOW IVP SCH (04:30)
[2023-04-20] MEDS ORDERED: Ondansetron ODT 4 MG TAB PO PRN ×2 (05:22→05:23)
[2023-04-20] MEDS ORDERED: Lorazepam 2 MG/ML VIAL IM PRN (05:22)
[2023-04-20] MEDS ORDERED: Lorazepam 1 MG TAB PO PRN (05:22)
[2023-04-20] MEDS ORDERED: Calcium Carbonate 500 MG ChewTAB PO PRN (05:23)
[2023-04-20] MEDS ORDERED: Acetaminophen 325 MG TAB PO PRN (05:23)
[2023-04-20] MEDS ORDERED: Electrolyte Replacement Protocol 1 EACH FS SCH ×2 (05:30→07:30)
[2023-04-20 07:49] LABS: Phosphorus 2.2 mg/dL (2.3-4.7)
[2023-04-20 07:52] VITALS: BMI 32.8
[2023-04-20 07:53] VITALS: BP 134/78; TEMP 98
[2023-04-20] MEDS ORDERED: Magnesium 2 GM/50 ML(in water) 2 GM in Premix Bag 1 BAG IVPB SCH (08:00)
[2023-04-20] MEDS: Lorazepam 1 MG TAB PO SCH ×2 (08:18→11:50)
[2023-04-20] MEDS ORDERED: Folic Acid 1 MG TAB PO SCH (09:00)
[2023-04-20] MEDS ORDERED: Multivit, Therapeutic 1 TAB PO SCH (09:00)
[2023-04-20] MEDS ORDERED: levETIRAcetam 500 MG TAB PO SCH (09:00)
[2023-04-20] MEDS ORDERED: Famotidine 20 MG TAB PO SCH (09:00)
[2023-04-20 09:46] LABS: Amphetamine Not Detected (NotDetected); Barbiturates Screen Not Detected (NotDetected); Benzodiazepine Screen Detected (NotDetected); Cocaine Metabolite Screen Not Detected (NotDetected); Methadone Not Detected (NotDetected); Methamphetamine Not Detected (NotDetected); Opiate Screen Not Detected (NotDetected); Oxycodone Screen Not Detected (NotDetected); Phencyclidine (PCP) Not Detected (NotDetected); THC/Cannabinoid Screen Detected (NotDetected); Tricyclic Screen Not Detected (NotDetected)
[2023-04-21] MEDS ORDERED: Lorazepam 1 MG TAB PO PRN (05:22)
[2023-04-22] MEDS ORDERED: Lorazepam 1 MG TAB PO PRN (05:22)
[2023-04-23] MEDS ORDERED: Lorazepam 0.5 MG TAB PO PRN (05:22)
[2023-04-23] MEDS ORDERED: Thiamine 100 MG TAB PO SCH (06:00)
== END 2023-04-20 12:01 | disposition home or self-care (01) ==
LOC: SUATTDRO 03:36 → ERS 03:36 → 2SW 05:07
PROVIDERS: ADMIT Student in an Organized Health Care Education/Training Program; ATTEND Family Medicine
DX: G40.909 Epilepsy, unspecified, not intractable, without status epilepticus (principal); J45.909 Unspecified asthma, uncomplicated; Z79.899 Other long term (current) drug therapy
CPT/HCPCS: 36415; 70450; 71045; 80053; 80306; 80307; 82140; 83735; 84100; 84146; 84443; 85025; 93005; 94760; 96365; 96375; G0378; J1953; J2060; J2405; J3411; J3475